=== PATIENT | female | born 2000 | race Caucasian/White ===

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

== ENCOUNTER 2022-08-21 12:39 | Emergency (ER) | payer OTHER ==
[2022-08-21 12:44] VITALS: BP 133/82; PULSE 80; RESP 21; TEMP 98.3; BMI 30.2
[2022-08-21] MEDS ORDERED: KETOROLAC TROMETHAMINE 15 MG/ML VIAL IVPUSH ONE (13:11)
[2022-08-21] MEDS ORDERED: ONDANSETRON 4 MG/2 ML VIAL IVPUSH ONE (13:11)
[2022-08-21] MEDS ORDERED: ACETAMINOPHEN 1000 MG/100 ML BAG IVPB ONE (13:16)
[2022-08-21] MEDS ORDERED: ACETAMINOPHEN INJECTION 100 ML IVPB ONE (13:45)
[2022-08-21] MEDS ORDERED: ONDANSETRON 4 MG/2 ML VIAL ONE ×2 (13:46→13:55)
[2022-08-21 13:53] LABS: HCG,QUALITATIVE URINE Negative
[2022-08-21 14:03] LABS: BASO % 0.6 % (0-2.0); EOS % 3.7 % (0-4.5); HEMATOCRIT 39.7 % (32.4-45.2); HEMOGLOBIN 13.2 GM/dL (10.7-15.3); LYMPH % 22.7 % (8-40); MCHC 33.3 g/dl (32.0-36.0); MEAN PLT VOLUME 10.6 fl (7.5-11.1); MONO % 6.4 % (3.8-10.2); NEUT % 66.6 % (42.8-82.8); PLATELET COUNT 229 10^3/uL (134-434); RBC 4.72 M/mm3 (3.60-5.2); RDW 13.5 % (11.6-15.6); WHITE BLOOD COUNT 9.4 K/mm3 (4.0-10.0)
[2022-08-21 14:09] LABS: URINE APPEARANCE CLEAR; URINE BILIRUBIN NEGATIVE (NEGATIVE); URINE COLOR YELLOW; URINE GLUCOSE (UA) NEGATIVE (NEGATIVE); URINE KETONE TRACE (NEGATIVE); URINE LEUK ESTERASE NEGATIVE (NEGATIVE); URINE NITRITE NEGATIVE (NEGATIVE); URINE PROTEIN NEGATIVE (NEGATIVE); URINE UROBILINOGEN 0.2 mg/dL (0.2-1.0)
[2022-08-21 14:19] LABS: POTASSIUM 4.5 mmol/L (3.5-5.1)
[2022-08-21 14:21] LABS: CALCIUM 9.1 mg/dL (8.5-10.1)
[2022-08-21 14:22] LABS: BLOOD UREA NITROGEN 8.7 mg/dL (7-18)
[2022-08-21 14:25] LABS: CREATININE 0.6 mg/dL (0.55-1.3)
[2022-08-21 14:27] LABS: BILIRUBIN,TOTAL 0.8 mg/dL (0.2-1)
== END 2022-08-21 16:52 | disposition home or self-care (01) ==
LOC: JER 12:39
PROC: 3E033NZ Introduction of Analgesics, Hypnotics, Sedatives into Peripheral Vein, Percutaneous Approach (ICD-10-PCS; principal; 2022-08-21)
PROC: 3E033GC Introduction of Other Therapeutic Substance into Peripheral Vein, Percutaneous Approach (ICD-10-PCS; 2022-08-21)
DX: R10.30 Lower abdominal pain, unspecified (principal); R11.2 Nausea with vomiting, unspecified
CPT/HCPCS: 36415; 76856-TC; 80053; 81003; 83735; 84703; 85025; 87086; 99284-25

== ENCOUNTER 2023-06-17 19:54 | Emergency (ER) | payer OTHER ==
[2023-06-17 20:14] VITALS: TEMP 98.5; BMI 29.2
[2023-06-17 20:53] VITALS: BP 126/83; PULSE 78; RESP 17
== END 2023-06-17 21:45 | disposition home or self-care (01) ==
LOC: JER 19:54
DX: R20.2 Paresthesia of skin (principal); M25.541 Pain in joints of right hand
CPT/HCPCS: 99283-25

== ENCOUNTER 2023-09-03 17:55 | Emergency (ER) | payer OTHER ==
[2023-09-03 18:04] VITALS: BP 145/90; PULSE 94; RESP 18; TEMP 98.8; BMI 30.3
[2023-09-03] MEDS ORDERED: DEXAMETHASONE SOD PHOSPHATE 10 MG/1 ML VIAL ONE (18:35)
[2023-09-03] MEDS: ALBUTEROL SO4 2.5/IPRATROPIUM 0.5 INH SOL 3 ML VIAL.NEB. NEB ONE (18:39)
[2023-09-03] MEDS: DEXAMETHASONE SOD PHOSPHATE 10 MG/1 ML VIAL PO ONE (18:39)
== END 2023-09-03 20:47 | disposition home or self-care (01) ==
LOC: JER 17:55 → JERFT 17:55
PROC: 3E0F7GC Introduction of Other Therapeutic Substance into Respiratory Tract, Via Natural or Artificial Opening (ICD-10-PCS; principal; 2023-09-03)
DX: U07.1 COVID-19 (principal); R09.81 Nasal congestion; R05.9 Cough, unspecified; R50.9 Fever, unspecified; R07.89 Other chest pain; R06.2 Wheezing; M79.10 Myalgia, unspecified site
CPT/HCPCS: 0241U-QW; 99283-25; J1100

== ENCOUNTER 2023-11-19 19:09 | Emergency (ER) | payer OTHER ==
[2023-11-19 19:19] VITALS: BP 143/83; PULSE 92; RESP 18; TEMP 98.4; BMI 29.2
[2023-11-19] MEDS ORDERED: KETOROLAC TROMETHAMINE 30 MG/1 ML VIAL ONE (21:05)
[2023-11-19] MEDS ORDERED: ACETAMINOPHEN 500 MG TABLET (FP) ONE (21:05)
[2023-11-19] MEDS: KETOROLAC TROMETHAMINE 30 MG/1 ML VIAL IM ONE (21:10)
[2023-11-19] MEDS: ACETAMINOPHEN 500 MG TABLET (FP) PO ONE (21:11)
== END 2023-11-19 22:52 | disposition home or self-care (01) ==
LOC: JERFT 19:09 → JER 19:09 → JERFT 22:52
PROC: 3E0133Z Introduction of Anti-inflammatory into Subcutaneous Tissue, Percutaneous Approach (ICD-10-PCS; principal; 2023-11-19)
DX: M54.50 Low back pain, unspecified (principal)
CPT/HCPCS: 72100-TC-FY; 84703; 99284-25

== ENCOUNTER 2023-12-12 14:13 | Emergency (ER) | payer OTHER ==
[2023-12-12] MEDS ORDERED: ALBUTEROL SO4 2.5/IPRATROPIUM 0.5 INH SOL 3 ML VIAL.NEB. NEB ONE ×2 (15:34→16:20)
[2023-12-12] MEDS ORDERED: DEXAMETHASONE SOD PHOSPHATE 10 MG/1 ML VIAL ONE (15:34)
[2023-12-12 15:46] VITALS: RESP 18; BMI 29.6
[2023-12-12] MEDS ORDERED: IBUPROFEN 600 MG TABLET (FP) PO ONE (15:56)
[2023-12-12] MEDS: DEXAMETHASONE SOD PHOSPHATE 10 MG/1 ML VIAL IM ONE (16:04)
[2023-12-12] MEDS: ALBUTEROL SO4 2.5/IPRATROPIUM 0.5 INH SOL 3 ML VIAL.NEB. NEB SCH (16:04)
[2023-12-12] MEDS: IBUPROFEN 600 MG TABLET (FP) PO ONE (16:04)
[2023-12-12 17:13] VITALS: BP 137/71; PULSE 115; TEMP 98.1
== END 2023-12-12 17:25 | disposition home or self-care (01) ==
LOC: JERFT 14:13 → JER 14:13
PROC: 3E033GC Introduction of Other Therapeutic Substance into Peripheral Vein, Percutaneous Approach (ICD-10-PCS; principal; 2023-12-12)
PROC: 3E0F7GC Introduction of Other Therapeutic Substance into Respiratory Tract, Via Natural or Artificial Opening (ICD-10-PCS; 2023-12-12)
DX: J45.901 Unspecified asthma with (acute) exacerbation (principal); J06.9 Acute upper respiratory infection, unspecified; R05.9 Cough, unspecified; R07.89 Other chest pain; R50.9 Fever, unspecified
CPT/HCPCS: 71046-TC-FY; 99283-25; J1100

== ENCOUNTER 2024-04-26 17:09 | Inpatient (IN) | payer OTHER ==
[2024-04-26 17:14] VITALS: BMI 31.1
[2024-04-26] MEDS ORDERED: predniSONE 20 MG TABLET (UD) ONE (17:59)
[2024-04-26] MEDS ORDERED: ALBUTEROL SO4 2.5/IPRATROPIUM 0.5 INH SOL 3 ML VIAL.NEB. NEB ONE ×3 (17:59→21:30)
[2024-04-26] MEDS: predniSONE 20 MG TABLET (UD) PO ONE (18:05)
[2024-04-26] MEDS: ALBUTEROL SO4 2.5/IPRATROPIUM 0.5 INH SOL 3 ML VIAL.NEB. NEB SCH (18:05)
[2024-04-26] MEDS ORDERED: MAGNESIUM 1GM/D5W - 1 GM/100 ML IVPB IVPB ONE (19:19)
[2024-04-26] MEDS ORDERED: ALBUTEROL SO4 0.042% IH SOL 1.25 MG/3 ML VIAL.NEB NEB ONE (19:21)
[2024-04-26 19:31] LABS: BASO % 0.3 % (0-2.0); EOS % 5.3 % (0-4.5); HEMATOCRIT 40.2 % (32.4-45.2); HEMOGLOBIN 13.4 GM/dL (10.7-15.3); LYMPH % 19.4 % (8-40); MCH 27.4 pg (25.7-33.7); MCHC 33.3 g/dl (32.0-36.0); MEAN CELL VOLUME 82.3 fl (80-96); MEAN PLT VOLUME 9.4 fl (7.5-11.1); MONO % 7.7 % (3.8-10.2); NEUT % 67.3 % (42.8-82.8); PLATELET COUNT 261 10^3/uL (134-434); RBC 4.88 M/mm3 (3.60-5.2); WHITE BLOOD COUNT 9.9 K/mm3 (4.0-10.0)
[2024-04-26] MEDS: ALBUTEROL SO4 0.042% IH SOL 1.25 MG/3 ML VIAL.NEB NEB ONE (19:31)
[2024-04-26] MEDS: MAGNESIUM 1GM/D5W - 1 GM/100 ML IVPB IVPB ONE (19:31)
[2024-04-26 19:57] LABS: POTASSIUM 3.6 mmol/L (3.5-5.1)
[2024-04-26 19:59] LABS: BLOOD UREA NITROGEN 8.6 mg/dL (7-18); CALCIUM 9.1 mg/dL (8.5-10.1)
[2024-04-26 20:03] LABS: CREATININE 0.7 mg/dL (0.55-1.3)
[2024-04-26 20:04] LABS: BILIRUBIN,TOTAL 0.9 mg/dL (0.2-1); TOT PROT 8.1 g/dl (6.4-8.2)
[2024-04-26] MEDS ORDERED: ONDANSETRON 4 MG/2 ML VIAL ONE (21:31)
[2024-04-26] MEDS: ONDANSETRON 4 MG/2 ML VIAL IVPUSH ONE (21:42)
[2024-04-26] MEDS: ALBUTEROL SO4 2.5/IPRATROPIUM 0.5 INH SOL 3 ML VIAL.NEB. NEB ONE ×2 (21:42→23:35)
[2024-04-26] MEDS ORDERED: ALBUTEROL SO4 HFA INHALER IH PRN (22:42)
[2024-04-26] MEDS ORDERED: methylPREDNISolone NA SUCC 40 MG/1 ML VIAL ONE (22:52)
[2024-04-26] MEDS: methylPREDNISolone NA SUCC 40 MG/1 ML VIAL IVPUSH SCH (22:57)
[2024-04-26] MEDS ORDERED: LEVALBUTEROL HCL 0.31 MG/3 ML VIAL.NEB IH ONE (23:19)
[2024-04-26] MEDS ORDERED: IPRATROPIUM BR 0.02% 0.5 MG/2.5 ML VIAL.NEB. NEB ONE (23:20)
[2024-04-26] MEDS: IPRATROPIUM BR 0.02% 0.5 MG/2.5 ML VIAL.NEB. NEB SCH (23:22)
[2024-04-26] MEDS: LEVALBUTEROL HCL 0.31 MG/3 ML VIAL.NEB IH SCH (23:22)
[2024-04-27 07:51] LABS: POTASSIUM 4.6 mmol/L (3.5-5.1)
[2024-04-27 07:53] LABS: HEMOGLOBIN 13.1 GM/dL (10.7-15.3); MCH 27.6 pg (25.7-33.7); MCHC 33.5 g/dl (32.0-36.0); MEAN CELL VOLUME 82.3 fl (80-96); MEAN PLT VOLUME 9.5 fl (7.5-11.1); PLATELET COUNT 280 10^3/uL (134-434); RBC 4.74 M/mm3 (3.60-5.2); RDW 14.4 % (11.6-15.6); WHITE BLOOD COUNT 12.1 K/mm3 (4.0-10.0)
[2024-04-27 07:56] LABS: BLOOD UREA NITROGEN 10.8 mg/dL (7-18); CALCIUM 9.4 mg/dL (8.5-10.1)
[2024-04-27 08:01] LABS: CREATININE 0.7 mg/dL (0.55-1.3)
[2024-04-27] MEDS: AZITHROMYCIN IVPB 500 MG/250 ML BAG IVPB SCH (09:30)
[2024-04-27] MEDS: ESCITALOPRAM OXALATE 10 MG TABLET PO SCH (09:30)
[2024-04-27] MEDS: ENOXAPARIN NA (PORCINE) 40 MG/0.4 ML DISP.SYRIN SQ SCH (09:31)
[2024-04-27] MEDS: ONDANSETRON 4 MG TABLET PO ONE (10:33)
[2024-04-27] MEDS ORDERED: ONDANSETRON *ODT* 4 MG TABLET SL PRN (12:51)
[2024-04-27 23:34] VITALS: RESP 18
[2024-04-28 07:54] LABS: BASO % 0.1 % (0-2.0); HEMATOCRIT 37.2 % (32.4-45.2); HEMOGLOBIN 12.4 GM/dL (10.7-15.3); LYMPH % 10.2 % (8-40); MCH 27.6 pg (25.7-33.7); MCHC 33.3 g/dl (32.0-36.0); MEAN CELL VOLUME 82.8 fl (80-96); MEAN PLT VOLUME 9.3 fl (7.5-11.1); MONO % 4.2 % (3.8-10.2); NEUT % 85.5 % (42.8-82.8); PLATELET COUNT 266 10^3/uL (134-434); RBC 4.49 M/mm3 (3.60-5.2); RDW 14.2 % (11.6-15.6); WHITE BLOOD COUNT 18.4 K/mm3 (4.0-10.0)
[2024-04-28 08:22] LABS: POTASSIUM 4.3 mmol/L (3.5-5.1)
[2024-04-28 08:32] LABS: CALCIUM 9.1 mg/dL (8.5-10.1)
[2024-04-28 08:33] LABS: BLOOD UREA NITROGEN 19.1 mg/dL (7-18); MAGNESIUM 2.2 mg/dL (1.8-2.4)
[2024-04-28 08:36] LABS: CREATININE 0.7 mg/dL (0.55-1.3); PHOSPHOROUS 4.9 mg/dL (2.5-4.9)
[2024-04-29 08:23] LABS: HEMOGLOBIN 12.3 GM/dL (10.7-15.3); MCHC 32.5 g/dl (32.0-36.0); MEAN PLT VOLUME 9.2 fl (7.5-11.1); PLATELET COUNT 281 10^3/uL (134-434); RBC 4.58 M/mm3 (3.60-5.2); RDW 13.8 % (11.6-15.6)
[2024-04-29 08:47] LABS: POTASSIUM 4.2 mmol/L (3.5-5.1)
[2024-04-29 09:01] LABS: CALCIUM 9.5 mg/dL (8.5-10.1)
[2024-04-29 09:02] LABS: ALBUMIN 3.8 g/dl (3.4-5.0); BLOOD UREA NITROGEN 18.5 mg/dL (7-18)
[2024-04-29 09:05] LABS: CREATININE 0.7 mg/dL (0.55-1.3)
[2024-04-29 09:06] LABS: BILIRUBIN,TOTAL 0.9 mg/dL (0.2-1)
[2024-04-29 09:07] LABS: TOT PROT 7.5 g/dl (6.4-8.2)
[2024-04-29] MEDS: OSELTAMIVIR PHOSPHATE 75 MG CAPSULE PO SCH (16:57)
[2024-04-30] MEDS: predniSONE 20 MG TABLET (UD) PO SCH (10:15)
[2024-04-30 10:30] LABS: EOS % 0.5 % (0-4.5); HEMOGLOBIN 12.8 GM/dL (10.7-15.3); LYMPH % 40.8 % (8-40); MCH 27.1 pg (25.7-33.7); MCHC 32.9 g/dl (32.0-36.0); MEAN CELL VOLUME 82.3 fl (80-96); MEAN PLT VOLUME 9.3 fl (7.5-11.1); MONO % 7.4 % (3.8-10.2); NEUT % 51.3 % (42.8-82.8); PLATELET COUNT 275 10^3/uL (134-434); RBC 4.73 M/mm3 (3.60-5.2); RDW 13.7 % (11.6-15.6); WHITE BLOOD COUNT 18.4 K/mm3 (4.0-10.0)
[2024-04-30 10:56] LABS: POTASSIUM 3.6 mmol/L (3.5-5.1)
[2024-04-30 10:58] LABS: ALBUMIN 3.7 g/dl (3.4-5.0); BLOOD UREA NITROGEN 23.4 mg/dL (7-18); CALCIUM 9.3 mg/dL (8.5-10.1)
[2024-04-30 11:01] LABS: CREATININE 0.8 mg/dL (0.55-1.3)
[2024-04-30 11:03] LABS: BILIRUBIN,TOTAL 0.8 mg/dL (0.2-1); TOT PROT 7.4 g/dl (6.4-8.2)
[2024-04-30 14:50] VITALS: BP 127/72; PULSE 92; TEMP 97.5
== END 2024-04-30 16:50 | disposition home or self-care (01) | DRG 141 ==
LOC: JER 17:09 → JERBED 22:28 → J4W 04-27 02:09 → OBSVTOIN 04-27 09:21 → J4S 04-27 21:31
PROVIDERS: ADMIT Student in an Organized Health Care Education/Training Program; ATTEND Physician Assistant
DX: J45.901 Unspecified asthma with (acute) exacerbation (principal); J96.01 Acute respiratory failure with hypoxia; F41.8 Other specified anxiety disorders; R00.0 Tachycardia, unspecified; D72.829 Elevated white blood cell count, unspecified
CPT/HCPCS: 0241U-QW; 36415; 71046-TC-FY; 71275-TC; 80048; 80053; 83735; 84100; 84702; 85025; 85027; 93005; 93010; 94150; 94640; 99285-25; G0378; Q9967